=== PATIENT | female | born 1990 | race Caucasian/White ===

== ENCOUNTER 2019-05-24 20:09 | Emergency (ER) | payer OTHER ==
[~2019-05-24] VITALS: Ht 172.7 cm; Wt 112.9 kg
[2019-05-24 20:29] VITALS: Ht 172.7 cm; Wt 112.9 kg
[2019-05-24 22:02] VITALS: BP 173/107
== END 2019-05-24 22:02 | disposition home or self-care (01) ==
LOC: ED 20:09
DX: M79.2 Neuralgia and neuritis, unspecified (principal)